=== PATIENT | female | born 1980 | race Caucasian/White ===

== ENCOUNTER 2021-10-11 21:37 | Emergency (ER) | payer MEDICAID, OTHER ==
--- NOTE | 2021-10-11 22:25 | NUR ---
Patient was called to be triaged but was not present in the waiting room or outside of ER.
--- NOTE | 2021-10-11 22:40 | NUR ---
Patient was called to be triaged but was not present in the waiting room or outside of ER.
== END 2021-10-11 23:43 | disposition left against medical advice (07) ==
LOC: ER 21:44
DX: Z53.21 Procedure and treatment not carried out due to patient leaving prior to being seen by health care provider (principal)